=== PATIENT | male | born 1995 | race Hispanic/Latino ===

== ENCOUNTER → 2021-09-04 | Outpatient (CLI) | payer MEDICARE | LOC: US 10:04 | PROVIDERS: ATTEND Internal Medicine Gastroenterology | DX: R10.84 Generalized abdominal pain (principal) | CPT/HCPCS: 76700 ==

== ENCOUNTER → 2021-09-05 | Day surgery (SDC) | payer MEDICARE ==
[~2021-09-05] MED LIST: FENTANYL CITRATE/PF 100MCG/2 ML INJ ONE; LIDOCAINE HCL 2% LOCAL INJ 5 ML SDV VIAL INJ ONE; MIDAZOLAM HCL 2 MG/2 ML VIAL ONE; PROPOFOL IV EMULSION 10 MG/ML 20 ML VIAL ONE
[2021-09-05 14:40] VITALS: BP 108/79
== END | disposition home or self-care (01) ==
LOC: OR 11:15
PROVIDERS: ATTEND Internal Medicine Gastroenterology
DX: K29.50 Unspecified chronic gastritis without bleeding (principal); K22.10 Ulcer of esophagus without bleeding; K44.9 Diaphragmatic hernia without obstruction or gangrene; K22.89 Other specified disease of esophagus; K31.89 Other diseases of stomach and duodenum; Z71.3 Dietary counseling and surveillance; G80.9 Cerebral palsy, unspecified; R03.0 Elevated blood-pressure reading, without diagnosis of hypertension; Z71.89 Other specified counseling; Z01.812 Encounter for preprocedural laboratory examination; Z20.822 Contact with and (suspected) exposure to COVID-19; Z68.26 Body mass index [BMI] 26.0-26.9, adult
CPT/HCPCS: 43239; 88305; 88312; C9113; J2001; J2250; J2704; J3010; U0002; 88342

== ENCOUNTER → 2022-06-13 | Outpatient (CLI) | payer MEDICARE | LOC: US 08:50 | PROVIDERS: ATTEND Internal Medicine Gastroenterology | DX: K29.70 Gastritis, unspecified, without bleeding (principal); R10.10 Upper abdominal pain, unspecified | CPT/HCPCS: 76700; 78227; A9537 ==